=== PATIENT | male | born 1990 | race Caucasian/White ===

== ENCOUNTER → 2018-04-06 07:27 | Outpatient (CLI) | payer OTHER, SELFPAY ==
--- NOTE | 2018-04-06 15:43 | STRESSREP ---
Stress Test Report Exercise stress test. 27-year-old male with a history of chest pain. Stress protocol: Resting EKG demonstrates normal sinus rhythm with a rate of 81 bpm normal intervals and noted resting blood pressure 152/86 mmHg. The patient exercised according to regular Luis Alfredo protocol for total duration of 9 minutes the maximum heart rate attained was 187 bpm which was 97% of maximum predicted heart rate the maximum workload was 10.4 metabolic equivalents. The patient maintained sinus rhythm throughout the recording. At rest there were no ST or T wave changes noted suggest ischemia peak exercise upsloping ST changes only were noted with no meet the criteria for ischemia. The resting blood pressure is 152/86 with a peak blood pressure 208/72. No clinical angina was noted no chest pain was noted. Conclusion: Exercise stress test with no EKG criteria for ischemia at a high workload. No clinical angina noted. Good functional capacity.
== END ==
PROVIDERS: Family Provider Family Medicine; PCP Family Medicine; Referring Provider Internal Medicine Cardiovascular Disease; Visit Provider Internal Medicine Cardiovascular Disease
DX: R03.0 Elevated blood-pressure reading, without diagnosis of hypertension (principal)
CPT/HCPCS: 93017

== ENCOUNTER → 2019-04-06 19:12 | Outpatient (CLI) | payer OTHER, SELFPAY ==
[2019-04-06 20:02] LABS: ALB/GLOB Ratio 1.3 RATIO (0.9-2.4); AST(SGOT) 33 U/L (15-37); Alanine Aminotransfer ALT/SGPT 52 U/L (16-61); Albumin, Serum 4.2 g/dL (3.2-5.0); Alkaline Phosphatase 63 U/L (45-117); Anion Gap 9 (5-15); BUN 18 mg/dL (7-18); BUN/Creat Ratio 20.7 RATIO (10-20); Calcium,Total 9.8 mg/dL (8.5-10.1); Chloride 108 mmol/L (98-107); Cholesterol 142 mg/dL (200); Creatinine, Serum 0.87 mg/dL (0.70-1.30); EST Glomerular Filtration Rate 109 mL/min (>60); Est Glom Filt Rate - Afr Amer 132 mL/min (>60); Globulin 3.2 g/dL (2.2-4.2); Glucose 85 mg/dL (74-106); High Density Lipoprotein 51 mg/dL; Potassium 3.5 mmol/L (3.5-5.1); Protein, Total 7.4 g/dL (6.4-8.2); Sodium Level 140 mmol/L (136-145); Thyroid Stim Hormone (TSH) 1.89 uIU/mL (0.358-3.74); Triglycerides 51 mg/dL; Very Low Density Lipoprotein 10 mg/dL (5-40)
== END ==
PROVIDERS: Family Provider Family Medicine; PCP Family Medicine; Visit Provider Nurse Practitioner Family
DX: Z00.00 Encounter for general adult medical examination without abnormal findings (principal); R53.83 Other fatigue
CPT/HCPCS: 36415; 80053; 80061; 84443

== ENCOUNTER 2019-12-07 13:37 | Emergency (ER) | payer OTHER, SELFPAY ==
[2019-12-07 13:37] VITALS: BP 146/91; PULSE 76; RESP 16; TEMP 36.9; O2SAT 95; BMI 29.4
--- NOTE | 2019-12-07 14:25 | RAD_ITS ---
STUDY: X-RAY - RIGHT TIBIA AND FIBULA REASON FOR EXAM: Male, 29 years old. Mid tib-fib pain, trauma, soft tissue swelling TECHNIQUE: 4 view(s) of the tibia and fibula were obtained. COMPARISON: None. FINDINGS: Normal visualized tibia. Normal visualized fibula. The soft tissue structures are unremarkable. RAD/Tibia & Fibula 2 Views IMPRESSION: Normal x-ray examination of the tibia and fibula. Electronically Signed: Ronni Arteaga, at 14:40 EDT , Service support ,
--- NOTE | 2019-12-07 14:39 | ED.DCSUM_ITS ---
- ER Visit Summary Date of Service: 12/07/19 Chief Complaint: Right calf pain History of Present Illness: The patient is a [address] Echavarria. Patient is in the and had just started jogging at PT when he felt a pop in his proximal right calf and has had severe pain. He denies any other injury. He is never had anything like this before. He denies any paresthesias distally. He reports that his pain is 5 out of 10 in severity with walking and 2 out of 10 at rest. States that as he sits down it does seem to tighten up more. Physical Examination: Vitals: Stable. Afebrile. General: Well-nourished and well-developed. Head: Normocephalic atraumatic. Neck: Supple, no lymphadenopathy. No JVD. Nontender. Cardiovascular: Regular rate and rhythm. No murmurs. Respiratory: No respiratory distress. Clear to auscultation bilaterally. Abdominal: Soft, nontender, nondistended, normal bowel sounds. No guarding, rebound, or peritoneal signs. Back: Nontender. Extremities: Severe tenderness to palpation over the mid portion of the right calf. He has no pain over his Achilles. His Achilles is intact. He has a normal Grant test. The compartments are soft. He has no pain with passive extension or flexion of his foot. He has normal sensation light touch less than 2-second capillary refill. No evidence of a compartment syndrome. No pain over the medial or lateral malleoli. No pain over the proximal fibula or base of the fifth metatarsal. Skin: Normal color, no rash. Neurologic: Alert and oriented ?3. Cranial nerves II through XII are intact. Normal strength and sensation. Psych: Normal affect. Test Results: X-ray shows no acute disease. Emergency Department Course and Treatment: Patient refused pain medications and is resting comfortably. Had a prolonged discussion with him at this time it is difficult to tell whether or not he may have torn a portion of the muscle. He does understand that if this occurred that there will be bruising from this. Treatment Plan: Patient be discharged in a walking boot instructed and instructed to follow-up with Dr. Garcia on within a week for further evaluation and treatment. Return to the emergency department for any worsening symptoms. Disposition: To home in improved and stable condition. Impression: 1. Right calf strain. This note was generated with [employer] dictation software. It may contain incorrect words, spelling, and punctuation that were not noted in review of the chart prior to signing ED Disposition - Plan for ED Patient: Instructions: ED Strain Muscle Ext Referrals: Verito Kearney DPM [STAFF PHYSICIAN] - 1 Week
== END 2019-12-07 15:32 | disposition home or self-care (01) ==
LOC: ED 14:39
PROVIDERS: Emergency Provider Emergency Medicine; PCP Family Medicine
DX: S86.111A Strain of other muscle(s) and tendon(s) of posterior muscle group at lower leg level, right leg, initial encounter (principal); X58.XXXA Exposure to other specified factors, initial encounter; Y93.02 Activity, running; Y92.89 Other specified places as the place of occurrence of the external cause; Y99.9 Unspecified external cause status
CPT/HCPCS: 73590; 99283